=== PATIENT | male | born 1960 | race Caucasian/White ===

== ENCOUNTER 2020-11-02 09:10 | Inpatient (IN) | payer OTHER, BC ==
[2020-11-02] MEDS ORDERED: BAMLANIVIMAB 700 MG in SODIUM CHLORIDE 250 ML IVPB ONE (09:39)
[2020-11-02 10:24] LABS: BASO % 0.2 % (0-2.0); HEMATOCRIT 49.9 % (35.4-49); HEMOGLOBIN 16.4 GM/dL (11.7-16.9); LYMPH % 7.2 % (8-40); MCH 28.1 pg (25.7-33.7); MCHC 32.9 g/dl (32.0-35.9); MEAN CELL VOLUME 85.5 fl (80-96); MEAN PLT VOLUME 8.3 fl (7.5-11.1); MONO % 5.8 % (3.8-10.2); NEUT % 86.8 % (42.8-82.8); PLATELET COUNT 265 K/MM3 (134-434); RBC 5.84 M/mm3 (4.00-5.60)
[2020-11-02 10:53] LABS: POTASSIUM 4.9 mmol/L (3.5-5.1)
[2020-11-02 10:55] LABS: ALBUMIN 3.1 g/dl (3.4-5.0); BLOOD UREA NITROGEN 27.8 mg/dL (7-18)
[2020-11-02 10:59] LABS: CREATININE 1.2 mg/dL (0.55-1.3); TOT PROT 7.4 g/dl (6.4-8.2)
[2020-11-02 11:01] LABS: BILIRUBIN,TOTAL 0.6 mg/dL (0.2-1)
[2020-11-02] MEDS ORDERED: DEXAMETHASONE 4 MG TABLET (FP) PO ONE (12:04)
[2020-11-02] MEDS ORDERED: DEXAMETHASONE SOD PHOSPHATE 10 MG/1 ML VIAL ONE (12:12)
[2020-11-02] MEDS ORDERED: diphenhydrAMINE HCL 25 MG CAPSULE (FP) PO ONE ×2 (12:17→12:26)
[2020-11-02] MEDS ORDERED: AZITHROMYCIN IVPB 500 MG in DEXTROSE 5%-WATER - 250 ML IVPB ONE (13:10)
[2020-11-02] MEDS ORDERED: CEFTRIAXONE 1,000 MG in DEXTROSE 5%-WATER - 50 ML IVPB ONE (13:10)
[2020-11-02] MEDS ORDERED: CEFTRIAXONE 1 GM/50 ML BAG ONE (13:21)
[2020-11-02] MEDS ORDERED: AZITHROMYCIN IVPB 500 MG/250 ML BAG IVPB ONE (13:21)
[2020-11-02 13:36] LABS: INR 1.01 (0.83-1.09); PROTHROMBIN TIME (PATIENT) 12.2 SEC (9.7-13.0)
[2020-11-02 14:05] LABS: N-TERMINAL BNP 562.8 pg/ml (5-125)
[2020-11-02 14:40] LABS: LDH 404 U/L (87-246)
[2020-11-02] MEDS: ENOXAPARIN NA (PORCINE) 40 MG/0.4 ML DISP.SYRIN SQ SCH (18:03)
[2020-11-02] MEDS: ZINC SULFATE 220 MG CAPSULE (FP) PO SCH (18:04)
[2020-11-02] MEDS: FAMOTIDINE 20 MG TABLET PO SCH (18:04)
[2020-11-02] MEDS: CHOLECALCIFEROL (VIT D3) 1,000 UNIT (25 MCG) TABLET PO SCH (18:04)
[2020-11-02 19:01] VITALS: BMI 50.1
[2020-11-02] MEDS ORDERED: LISINOPRIL 20 MG TABLET PO SCH ×2 (20:59→21:00)
[2020-11-02] MEDS ORDERED: amLODIPine BESYLATE 10 MG TABLET (FP) PO SCH (21:00)
[2020-11-02] MEDS ORDERED: LISINOPRIL 20 MG TABLET PO ONE (21:29)
[2020-11-02] MEDS ORDERED: amLODIPine BESYLATE 10 MG TABLET (FP) PO ONE (21:30)
[2020-11-02] MEDS: ASCORBIC ACID 500 MG TABLET (FP) PO SCH (21:35)
[2020-11-03 08:45] LABS: BASO % 0.2 % (0-2.0); HEMATOCRIT 47.3 % (35.4-49); HEMOGLOBIN 15.8 GM/dL (11.7-16.9); LYMPH % 6.9 % (8-40); MCH 28.2 pg (25.7-33.7); MCHC 33.3 g/dl (32.0-35.9); MEAN CELL VOLUME 84.7 fl (80-96); MEAN PLT VOLUME 8.5 fl (7.5-11.1); MONO % 7.5 % (3.8-10.2); NEUT % 85.4 % (42.8-82.8); PLATELET COUNT 270 K/MM3 (134-434); RBC 5.59 M/mm3 (4.00-5.60); WHITE BLOOD COUNT 8.5 K/mm3 (4.0-10.0)
[2020-11-03 09:05] LABS: POTASSIUM 4.8 mmol/L (3.5-5.1)
[2020-11-03 09:33] LABS: ALBUMIN 2.8 g/dl (3.4-5.0); BLOOD UREA NITROGEN 29.5 mg/dL (7-18); CALCIUM 8.8 mg/dL (8.5-10.1)
[2020-11-03 09:36] LABS: CREATININE 1.1 mg/dL (0.55-1.3)
[2020-11-03] MEDS ORDERED: ACETAMINOPHEN 325 MG TABLET (FP) PO PRN (10:00)
[2020-11-03] MEDS ORDERED: BENZOCAINE/MENTH/CETYLPYRD CL 1 EACH LOZENGE MM PRN (10:00)
[2020-11-03] MEDS ORDERED: CEFTRIAXONE 1 GM in DEXTROSE 5%-WATER - 50 ML IVPB SCH (10:00)
[2020-11-03] MEDS ORDERED: DEXTROSE 5%-WATER - 50 ML IVPB ONE (10:40)
[2020-11-03] MEDS ORDERED: cefTRIAXone SODIUM 1 GM VIAL ONE (10:40)
[2020-11-03] MEDS: LISINOPRIL 20 MG TABLET PO SCH (10:58)
[2020-11-03] MEDS: ZINC SULFATE 220 MG CAPSULE (FP) PO SCH (10:58)
[2020-11-03] MEDS: DEXAMETHASONE SOD PHOSPHATE 10 MG/1 ML VIAL IVPUSH SCH (10:58)
[2020-11-03] MEDS: ENOXAPARIN NA (PORCINE) 40 MG/0.4 ML DISP.SYRIN SQ SCH (10:58)
[2020-11-03] MEDS: FAMOTIDINE 20 MG TABLET PO SCH (10:58)
[2020-11-03] MEDS: CHOLECALCIFEROL (VIT D3) 1,000 UNIT (25 MCG) TABLET PO SCH (11:02)
[2020-11-03] MEDS: AZITHROMYCIN IVPB 500 MG/250 ML BAG IVPB SCH (11:02)
[2020-11-03] MEDS: ASCORBIC ACID 500 MG TABLET (FP) PO SCH ×2 (11:02→22:36)
[2020-11-03] MEDS: BUDESONIDE/FORMETEROL FUMARATE 160/4.5 mcg INHALER IH SCH ×2 (11:51→21:52)
[2020-11-03] MEDS ORDERED: REMDESIVIR 200 MG in SODIUM CHLORIDE 210 ML IVPB ONE (12:00)
[2020-11-03] MEDS: ALBUTEROL SO4 HFA INHALER IH SCH ×3 (13:14→21:54)
[2020-11-03] MEDS: amLODIPine BESYLATE 10 MG TABLET (FP) PO SCH (17:32)
[2020-11-03] MEDS: ATORVASTATIN CA 40 MG TABLET (FP) PO SCH (21:53)
[2020-11-03] MEDS: ENOXAPARIN NA (PORCINE) 120 MG/0.8 ML DISP.SYRIN SQ SCH (22:36)
[2020-11-04 08:46] LABS: BASO % 0.2 % (0-2.0); HEMATOCRIT 46.9 % (35.4-49); HEMOGLOBIN 15.6 GM/dL (11.7-16.9); LYMPH % 12.7 % (8-40); MCH 28.3 pg (25.7-33.7); MCHC 33.3 g/dl (32.0-35.9); MEAN CELL VOLUME 84.9 fl (80-96); MEAN PLT VOLUME 8.4 fl (7.5-11.1); MONO % 11.7 % (3.8-10.2); NEUT % 75.4 % (42.8-82.8); PLATELET COUNT 296 K/MM3 (134-434); RBC 5.53 M/mm3 (4.00-5.60); WHITE BLOOD COUNT 6.2 K/mm3 (4.0-10.0)
[2020-11-04] MEDS: ALBUTEROL SO4 HFA INHALER IH SCH ×4 (09:00→21:32)
[2020-11-04 09:10] LABS: POTASSIUM 4.7 mmol/L (3.5-5.1)
[2020-11-04 09:17] LABS: CALCIUM 8.6 mg/dL (8.5-10.1)
[2020-11-04 09:18] LABS: ALBUMIN 2.8 g/dl (3.4-5.0); BLOOD UREA NITROGEN 38.7 mg/dL (7-18)
[2020-11-04 09:22] LABS: BILIRUBIN,TOTAL 0.8 mg/dL (0.2-1); CREATININE 1.2 mg/dL (0.55-1.3)
[2020-11-04 09:23] LABS: TOT PROT 6.9 g/dl (6.4-8.2)
[2020-11-04] MEDS ORDERED: PATIENT'S OWN MEDICATION (NON-FORMULARY) (Amlodipine Besylate/Benazepril [Lotrel 10-20 Mg PO SCH (10:00)
[2020-11-04] MEDS ORDERED: DEXTROSE 5%-WATER - 50 ML IVPB ONE (10:19)
[2020-11-04] MEDS ORDERED: cefTRIAXone SODIUM 1 GM VIAL ONE (10:19)
[2020-11-04] MEDS: FAMOTIDINE 20 MG TABLET PO SCH (11:29)
[2020-11-04] MEDS: CHOLECALCIFEROL (VIT D3) 1,000 UNIT (25 MCG) TABLET PO SCH (11:29)
[2020-11-04] MEDS: LISINOPRIL 20 MG TABLET PO SCH (11:30)
[2020-11-04] MEDS: ZINC SULFATE 220 MG CAPSULE (FP) PO SCH (11:30)
[2020-11-04] MEDS: DEXAMETHASONE SOD PHOSPHATE 10 MG/1 ML VIAL IVPUSH SCH (11:30)
[2020-11-04] MEDS: amLODIPine BESYLATE 10 MG TABLET (FP) PO SCH (11:30)
[2020-11-04] MEDS: ENOXAPARIN NA (PORCINE) 120 MG/0.8 ML DISP.SYRIN SQ SCH ×2 (11:31→23:01)
[2020-11-04] MEDS: BUDESONIDE/FORMETEROL FUMARATE 160/4.5 mcg INHALER IH SCH ×2 (11:31→21:32)
[2020-11-04] MEDS: ASCORBIC ACID 500 MG TABLET (FP) PO SCH ×2 (11:32→21:30)
[2020-11-04] MEDS: guaiFENesin 200 MG/10 ML 10 ML UNIT-DOSE CUPS PO PRN (11:32)
[2020-11-04] MEDS: AZITHROMYCIN IVPB 500 MG/250 ML BAG IVPB SCH (11:57)
[2020-11-04] MEDS ORDERED: SODIUM CHLORIDE NASAL SPRAY 44 ML BOTTLE NS PRN (12:51)
[2020-11-04] MEDS: REMDESIVIR 100 MG in SODIUM CHLORIDE 230 ML IVPB SCH (15:03)
[2020-11-04] MEDS: ATORVASTATIN CA 40 MG TABLET (FP) PO SCH (21:30)
[2020-11-05] MEDS: ALBUTEROL SO4 HFA INHALER IH SCH ×4 (09:02→21:23)
[2020-11-05 09:21] LABS: BASO % 0.1 % (0-2.0); HEMATOCRIT 47.3 % (35.4-49); HEMOGLOBIN 15.5 GM/dL (11.7-16.9); LYMPH % 11.3 % (8-40); MCHC 32.8 g/dl (32.0-35.9); MEAN CELL VOLUME 85.3 fl (80-96); MEAN PLT VOLUME 8.5 fl (7.5-11.1); MONO % 12.9 % (3.8-10.2); NEUT % 75.7 % (42.8-82.8); PLATELET COUNT 280 K/MM3 (134-434); RBC 5.55 M/mm3 (4.00-5.60); WHITE BLOOD COUNT 5.9 K/mm3 (4.0-10.0)
[2020-11-05 09:41] LABS: POTASSIUM 4.9 mmol/L (3.5-5.1)
[2020-11-05 09:57] LABS: ALBUMIN 2.8 g/dl (3.4-5.0); BLOOD UREA NITROGEN 41.5 mg/dL (7-18); CALCIUM 8.7 mg/dL (8.5-10.1)
[2020-11-05 10:03] LABS: BILIRUBIN,TOTAL 0.6 mg/dL (0.2-1); CREATININE 1.1 mg/dL (0.55-1.3)
[2020-11-05 10:04] LABS: TOT PROT 6.7 g/dl (6.4-8.2)
[2020-11-05] MEDS: ENOXAPARIN NA (PORCINE) 120 MG/0.8 ML DISP.SYRIN SQ SCH ×2 (11:03→21:22)
[2020-11-05] MEDS: FAMOTIDINE 20 MG TABLET PO SCH (11:04)
[2020-11-05] MEDS: ZINC SULFATE 220 MG CAPSULE (FP) PO SCH (11:04)
[2020-11-05] MEDS: LISINOPRIL 20 MG TABLET PO SCH (11:05)
[2020-11-05] MEDS: ASCORBIC ACID 500 MG TABLET (FP) PO SCH ×2 (11:05→21:21)
[2020-11-05] MEDS: amLODIPine BESYLATE 10 MG TABLET (FP) PO SCH (11:06)
[2020-11-05] MEDS: CHOLECALCIFEROL (VIT D3) 1,000 UNIT (25 MCG) TABLET PO SCH (11:06)
[2020-11-05] MEDS: DEXAMETHASONE SOD PHOSPHATE 10 MG/1 ML VIAL IVPUSH SCH (11:06)
[2020-11-05] MEDS: BUDESONIDE/FORMETEROL FUMARATE 160/4.5 mcg INHALER IH SCH ×2 (11:06→21:23)
[2020-11-05] MEDS: REMDESIVIR 100 MG in SODIUM CHLORIDE 230 ML IVPB SCH (11:59)
[2020-11-05] MEDS: ATORVASTATIN CA 40 MG TABLET (FP) PO SCH (21:21)
[2020-11-06 08:43] LABS: POTASSIUM 4.8 mmol/L (3.5-5.1)
[2020-11-06 08:46] LABS: ALBUMIN 2.9 g/dl (3.4-5.0); BLOOD UREA NITROGEN 43.4 mg/dL (7-18)
[2020-11-06 08:47] LABS: CALCIUM 8.5 mg/dL (8.5-10.1)
[2020-11-06 08:49] LABS: CREATININE 1.1 mg/dL (0.55-1.3)
[2020-11-06 08:50] LABS: BILIRUBIN,TOTAL 0.6 mg/dL (0.2-1)
[2020-11-06 08:54] LABS: TOT PROT 6.8 g/dl (6.4-8.2)
[2020-11-06] MEDS: DEXAMETHASONE SOD PHOSPHATE 10 MG/1 ML VIAL IVPUSH SCH (09:11)
[2020-11-06] MEDS: LISINOPRIL 20 MG TABLET PO SCH (09:11)
[2020-11-06] MEDS: ZINC SULFATE 220 MG CAPSULE (FP) PO SCH (09:11)
[2020-11-06] MEDS: ASCORBIC ACID 500 MG TABLET (FP) PO SCH ×2 (09:11→21:02)
[2020-11-06] MEDS: ENOXAPARIN NA (PORCINE) 120 MG/0.8 ML DISP.SYRIN SQ SCH ×2 (09:11→21:03)
[2020-11-06] MEDS: amLODIPine BESYLATE 10 MG TABLET (FP) PO SCH (09:11)
[2020-11-06] MEDS: BUDESONIDE/FORMETEROL FUMARATE 160/4.5 mcg INHALER IH SCH ×2 (09:12→21:05)
[2020-11-06] MEDS: ALBUTEROL SO4 HFA INHALER IH SCH ×4 (09:12→20:21)
[2020-11-06] MEDS: CHOLECALCIFEROL (VIT D3) 1,000 UNIT (25 MCG) TABLET PO SCH (09:12)
[2020-11-06] MEDS: FAMOTIDINE 20 MG TABLET PO SCH (10:17)
[2020-11-06] MEDS: REMDESIVIR 100 MG in SODIUM CHLORIDE 230 ML IVPB SCH (11:46)
[2020-11-06] MEDS: ATORVASTATIN CA 40 MG TABLET (FP) PO SCH (21:02)
[2020-11-07 07:56] LABS: HEMATOCRIT 47.5 % (35.4-49); HEMOGLOBIN 15.6 GM/dL (11.7-16.9); MCHC 32.8 g/dl (32.0-35.9); MEAN CELL VOLUME 85.4 fl (80-96); MEAN PLT VOLUME 8.8 fl (7.5-11.1); PLATELET COUNT 320 K/MM3 (134-434); RBC 5.56 M/mm3 (4.00-5.60); RDW 15.9 % (11.9-15.9); WHITE BLOOD COUNT 8.5 K/mm3 (4.0-10.0)
[2020-11-07 08:07] LABS: POTASSIUM 4.7 mmol/L (3.5-5.1)
[2020-11-07 08:25] LABS: CALCIUM 8.5 mg/dL (8.5-10.1)
[2020-11-07 08:26] LABS: ALBUMIN 2.9 g/dl (3.4-5.0); BLOOD UREA NITROGEN 47.6 mg/dL (7-18)
[2020-11-07 08:28] LABS: BILIRUBIN,TOTAL 0.7 mg/dL (0.2-1); TOT PROT 6.6 g/dl (6.4-8.2)
[2020-11-07 08:29] LABS: CREATININE 1.1 mg/dL (0.55-1.3)
[2020-11-07] MEDS: ENOXAPARIN NA (PORCINE) 120 MG/0.8 ML DISP.SYRIN SQ SCH (10:49)
[2020-11-07] MEDS: amLODIPine BESYLATE 10 MG TABLET (FP) PO SCH (10:50)
[2020-11-07] MEDS: FAMOTIDINE 20 MG TABLET PO SCH (10:50)
[2020-11-07] MEDS: ZINC SULFATE 220 MG CAPSULE (FP) PO SCH (10:50)
[2020-11-07] MEDS: LISINOPRIL 20 MG TABLET PO SCH (10:50)
[2020-11-07] MEDS: ASCORBIC ACID 500 MG TABLET (FP) PO SCH (10:50)
[2020-11-07] MEDS: ALBUTEROL SO4 HFA INHALER IH SCH ×3 (10:51→17:15)
[2020-11-07] MEDS: BUDESONIDE/FORMETEROL FUMARATE 160/4.5 mcg INHALER IH SCH (10:51)
[2020-11-07] MEDS: DEXAMETHASONE SOD PHOSPHATE 10 MG/1 ML VIAL IVPUSH SCH (10:51)
[2020-11-07] MEDS: guaiFENesin 200 MG/10 ML 10 ML UNIT-DOSE CUPS PO PRN (10:53)
[2020-11-07] MEDS: CHOLECALCIFEROL (VIT D3) 1,000 UNIT (25 MCG) TABLET PO SCH (10:53)
[2020-11-07] MEDS: REMDESIVIR 100 MG in SODIUM CHLORIDE 230 ML IVPB SCH (12:22)
[2020-11-07 15:30] VITALS: BP 140/81; PULSE 72; TEMP 98.1
== END 2020-11-07 19:05 | disposition home or self-care (01) | DRG 177 ==
LOC: JER 09:10 → JERBED 12:11 → J8W 16:42
PROVIDERS: ATTEND Internal Medicine
PROC: XW033E5 Introduction of Remdesivir Anti-infective into Peripheral Vein, Percutaneous Approach, New Technology Group 5 (ICD-10-PCS; principal; 2020-11-03)
DX: U07.1 COVID-19 (principal); J96.01 Acute respiratory failure with hypoxia; J12.82 Pneumonia due to coronavirus disease 2019; N17.9 Acute kidney failure, unspecified; Z68.43 Body mass index [BMI] 50.0-59.9, adult; I10 Essential (primary) hypertension; E78.5 Hyperlipidemia, unspecified; E66.01 Morbid (severe) obesity due to excess calories
CPT/HCPCS: 36415; 71045-TC-FY; 71046-TC-FY; 80053; 82550; 82728; 82962; 83605; 83615; 83880; 84484; 85025; 85027; 85379; 85610; 86140; 86769; 86850; 86900; 86901; 87040; 87804; 93005; 93010; 94010; 94761; 99285-25; C9399; C9803; J1100; M0239; Q0239; U0003

== ENCOUNTER 2025-02-06 09:17 | Emergency (ER) | payer OTHER ==
[2025-02-06 09:24] VITALS: BP 151/83; PULSE 62; RESP 19; TEMP 98.2; BMI 45.7
[2025-02-06] MEDS ORDERED: KETOROLAC TROMETHAMINE 30 MG/1 ML VIAL ONE (09:41)
[2025-02-06] MEDS: KETOROLAC TROMETHAMINE 30 MG/1 ML VIAL IM ONE (09:44)
== END 2025-02-06 12:20 | disposition home or self-care (01) ==
LOC: FER 09:17
PROC: 3E0233Z Introduction of Anti-inflammatory into Muscle, Percutaneous Approach (ICD-10-PCS; principal; 2025-02-06)
DX: M65.4 Radial styloid tenosynovitis [de Quervain] (principal); M25.531 Pain in right wrist; K42.9 Umbilical hernia without obstruction or gangrene
CPT/HCPCS: 73110-TC-RT-FY; 73130-TC-RT-FY; 99284-25